=== PATIENT | female | born 1990 | race Caucasian/White ===

== ENCOUNTER 2017-10-11 21:40 | Emergency (ER) | payer OTHER ==
[2017-10-11 21:48] VITALS: BP 102/72; PULSE 70; RESP 16; TEMP 98; O2SAT 99
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
== END 2017-10-12 00:14 | disposition home or self-care (01) ==
LOC: H.ER 21:40
DX: S09.90XA Unspecified injury of head, initial encounter (principal); S16.1XXA Strain of muscle, fascia and tendon at neck level, initial encounter; V43.52XA Car driver injured in collision with other type car in traffic accident, initial encounter; Y92.410 Unspecified street and highway as the place of occurrence of the external cause